=== PATIENT | female | born 2000 | race American Indian/Alaskan Native ===

== ENCOUNTER 2019-12-28 16:53 | Emergency (ER) | payer SELFPAY ==
[2019-12-28 17:03] VITALS: BP 129/79
--- NOTE | 2019-12-28 17:07 | Event Note ---
ED Screening Note ED Screening Note: right lower back pain that began two days ago states that the urine is slightly darker she had one episode of vomiting this morning she denies any dysuria she denies any vaginal PMHx none no allergies to meds LNMP: 12/22/2019 This initial assessment/diagnostic orders/clinical plan/treatment(s) is/are subj ect to change based on patients health status, clinical progression and re- assessment by fellow clinical providers in the ED. Further treatment and workup at subsequent clinical providers discretion. Patient/guardian urged not to elope from the ED as their condition may be serious if not clinically assessed and managed. Initial orders include: UA, urine preg
[2019-12-28 18:05] LABS: Bilirubin,Urine NEG (Negative); Blood,Urine NEG (Negative); Color,Urine Yellow (Yellow); Mucus,Urine 1+ /HPF; Protein,Urine <15 mg/dL mg/dL (Negative)
[2019-12-28 18:06] LABS: HCG Qualitative,Urine Negative (Negative)
--- NOTE | 2019-12-28 18:27 | Emergency Department Report ---
Chief Complaint: Urogenital-Female Stated Complaint: BACK PAIN, SIDE HURTS Time Seen by Provider: 12/28/19 17:05 - HPI History of Present Illness: pt is a 18 yo female who presents to the ED with c/o right lower back pain that began two days ago states that the urine is slightly darker she had one small episode of vomiting this morning she has been able to tolerate PO intake since then and has had no further episodes she denies any dysuria she denies any vaginal discharge or irritation no fever She denies any decreased urination PMHx ovarian cysts no allergies to meds LNMP: 12/22/2019 vss On exam Non toxic appearing, no acute distress atraumatic, normocephalic normal appearance of the eyes, PERRL, EOMI, no periorbital edema or ecchymosis moist mucus membranes regular heart rate and rhythm, no gallops, no rubs, no murmurs breath sounds are clear bilaterally, no w/r/r No abdominal tenderness to palpation, no guarding, no rebound, no rigidity, normal bowel sounds, no peritoneal signs, no CVA tenderness bilaterally No midline spinal or paraspinal C-spine, T-spine, L-spine tenderness to palpation, no step-offs, no deformities A&O x4, no focal neuro deficit, normal gait skin is warm, dry, intact UA is WNL, no signs of UTI urine preg is negative Patient is presenting with right lower back pain UA without evidence of UTI She has no signs of dehydration, no evidence of dehydration and from the UA she denies any vaginal discharge or irritation no CVAT on exam no fall or injury no focal neuro deficits advised pt please increase your water intake. please follow up with the health department or another clinic for a full STD panel. please follow up with an [facility] OPERATOR. return to the emergency room for any new or worsening symptoms. medical screening performed and there is no threat to life or limb at this time - Exam Vital Signs: Vital Signs 12/28/19 17:00 Temperature 98.7 F Pulse Rate 105 H Respiratory 18 Rate Blood Pressure 129/79 O2 Sat by Pulse 100 Oximetry MSE screening note: Focused history and physical exam performed. ED Medical Decision Making - Lab Data Lab Results 12/28/19 Range/Units 17:38 Urine Color Yellow (Yellow) Urine Turbidity Clear (Clear) Urine pH 6.0 (5.0-7.0) Ur Specific [place] 1.028 (1.003-1.030) Urine Protein <15 mg/dl (Negative) mg/dL Urine Glucose (UA) Neg (Negative) mg/dL Urine Ketones Neg (Negative) mg/dL Urine Blood Neg (Negative) Urine Nitrite Neg (Negative) Urine Bilirubin Neg (Negative) Urine Urobilinogen 4.0 (<2.0) mg/dL Ur Leukocyte Esterase Tr (Negative) Urine WBC (Auto) 4.0 (0.0-6.0) /HPF Urine RBC (Auto) 4.0 (0.0-6.0) /HPF U Epithel Cells (Auto) 5.0 (0-13.0) /HPF Urine Mucus 1+ /HPF Urine HCG, Qual Negative (Negative) ED Disposition for MSE Clinical Impression: Back pain Qualifiers: Back pain location: low back pain Chronicity: acute Back pain laterality: right Sciatica presence: without sciatica Qualified Code(s): M54.5 - Low back pain Disposition: MED SCREENING EXAM-LEFT Is pt being admited?: No Does the pt Need Aspirin: No Condition: Stable Instructions: Acute Low Back Pain (ED) Additional Instructions: please increase your water intake. please follow up with the health department or another clinic for a full STD panel. please follow up with an HANDLE ROUNDER OPERATOR. return to the emergency room for any new or worsening symptoms. [employer] Address: [address] [place] [address] Referrals: [facility] [Outside] - 2-3 Days [facility] [Provider Group] - 2-3 Days [facility] [Provider Group] - 2-3 Days Time of Disposition: 18:25 Print Language: EQUATORIAL GUINEAN
== END 2019-12-28 19:13 | disposition left against medical advice (07) ==
LOC: ED 16:53
DX: M54.89 Other dorsalgia (principal); Z53.21 Procedure and treatment not carried out due to patient leaving prior to being seen by health care provider
CPT/HCPCS: 81001; 81025